=== PATIENT | female | born 1975 | race Caucasian/White ===

== ENCOUNTER → 2016-09-07 | Outpatient (CLI) | payer BC ==
[~2016-09-07] MED LIST: ACET-1770 PO; BUPR-105 PO; EPIN0.3P3 SQ; ESTR1PAT91 TD; HYDR-4246 PO; HYOS0.122 PO; LIOT25TA9 PO; ONDA4TAB7 PO; TRIA1TAB93 PO
[2016-09-07 07:55] LABS: HCT - HEMATOCRIT 42.7 % (36-46); HGB - HEMOGLOBIN 14.2 GM/DL (12-16); MEAN CORPUSCULAR HGB 28.5 UUG (26-34); MEAN CORPUSCULAR HGB CONC(MCHC 33.3 GM/DL (31-37); MEAN CORPUSCULAR VOLUME 85.7 UM3 (80-100); MEAN PLATELET VOLUME 11.2 UM3 (9.4-12.4); RED BLOOD COUNT 4.98 M/MM3 (4.00-5.20); WBC - WHITE BLOOD COUNT 10.9 T/MM3 (4.5-11.0)
[2016-09-07 08:04] LABS: HEMOGLOBIN A1C 5.4 % (6.1-7.9)
[2016-09-07 08:10] LABS: ALBUMIN 4.5 G/DL (3.5-5.0); ALBUMIN/GLOBULIN RATIO 1.3 RATIO (1.1-2.2); ALKALINE PHOSPHATASE 99 U/L (38-126); ALT (SGPT) 35 U/L (9-52); ANION GAP 12 MEQ/L (5-15); AST (SGOT) 23 U/L (14-36); BUN/CREATININE RATIO 17 RATIO (6-26); CALCIUM 9.9 MG/DL (8.4-10.2); CHLORIDE 106 MEQ/L (98-107); CO2 - CARBON DIOXIDE 29 MEQ/L (22-30); CREATININE 0.7 MG/DL (0.7-1.2); GLOMERULAR FILTRATION RATE 93; GLUCOSE 113 MG/DL (65-110); POTASSIUM 3.9 MEQ/L (3.6-5); SODIUM 147 MEQ/L (134-144); TOTAL PROTEIN 8.1 G/DL (6.3-8.2)
[2016-09-07 08:51] LABS: LYMPHOCYTES # (MANUAL) 3.7 T/MM3 (1-4.8); MONOCYTES # (MANUAL) 0.2 T/MM3 (0-0.8); TOTAL CELLS COUNTED 100 %
[2016-09-07 08:55] LABS: THYROID STIM HORMONE-TSH 1.24 MIU/L (0.47-4.68)
[2016-09-08 00:48] LABS: RISK FACTOR 4.3 RATIO (0-4.0)
== END ==
LOC: LAB 07:40
PROVIDERS: ATTEND Family Medicine
DX: I10 Essential (primary) hypertension (principal); E03.9 Hypothyroidism, unspecified; Z83.3 Family history of diabetes mellitus
CPT/HCPCS: 36415; 80053; 80061; 83036; 84439; 84443; 85007; 85027